=== PATIENT | male | born 1940 | race Caucasian/White ===

== ENCOUNTER 2024-05-06 22:38 | Emergency (ER) | payer MEDICARE, OTHER, SELFPAY ==
[2024-05-06 22:39] VITALS: BP 173/93
[2024-05-06] MEDS: CARAFATE SUSPENSION 1 GM PO (23:42)
[2024-05-06 23:53] VITALS: BP 159/76
[2024-05-06 23:54] LABS: % Basophils 0.2 % (0-2); % Eosinophils 1.4 % (0-6); % Immature Granulocytes 0.3 % (0-0.5); % Monocytes 12.5 % (1.7-9.3); % Neutrophils 63.6 % (42.2-75.2); Absolute Eosinophils 0.1 10^3/uL (0-0.7); Absolute Lymphocytes 1.4 10^3/uL (1.2-3.4); Absolute Monocytes 0.8 10^3/uL (0.1-0.6); Hematocrit 42.9 % (39.0-52.0); Hemoglobin 14.6 g/dL (13.0-18.0); Mean Corpuscular Hgb 29.9 pg (27.0-31.0); Mean Corpuscular Volume 87.9 fL (80.0-94.0); Mean Platelet Volume 9.1 fL (7.4-10.4); Nucleated Red Blood Cells % 0 % (-); Platelet Count 165 10^3/uL (130-400); Red Blood Cell Count 4.88 10^6/uL (4.70-6.10); White Blood Cell Count 6.3 10^3/uL (4.8-10.8)
[2024-05-07] VITALS: BP 138/73
[2024-05-07 00:02] LABS: INR 0.94; PT 12.9 Sec (11.4-14.6)
[2024-05-07 00:03] LABS: APTT 30.3 Sec (23.4-35.0)
[2024-05-07 00:17] LABS: Troponin I < 0.012 ng/ml
[2024-05-07 00:42] LABS: ALT (SGPT) 46 U/L (0-50); AST (SGOT) 77 U/L (17-59); Albumin 4.2 g/dl (3.5-5.0); Alkaline Phosphatase 56 U/L (38-126); Blood Urea Nitrogen 20 mg/dl (9-20); Calcium 8.4 mg/dl (8.4-10.2); Carbon Dioxide 30 mmol/L (22-30); Chloride 98 mmol/L (98-107); Glucose 95 mg/dl (70-99); Lipase 119 U/L (23-300); Sodium 135 mmol/L (135-145); Total Bilirubin 0.7 mg/dl (0.2-1.3); eGFR > 60.00
--- NOTE | 2024-05-07 00:53 | ED.GENMED ---
History of Present Illness
General
Chief Complaint: Abdominal Symptoms
Source: patient
Exam Limitations: none
Time Seen by Provider: 05/06/24 23:25
Nursing documentation reviewed up to this point in time: agreed with
History of Present Illness
History of Present Illness:
Pleasant 83-year-old male presents to the emergency department with 'GERD '. Patient states that he has been battling with GERD for over 50 years. He states that he is triggered by spicy foods including pepperoni and onions. He ate some homemade
deer sausage given to him by a friend and found that it was spicy. He developed symptoms immediately after eating and has been having them for the last 5 days. He states that he has been unable to sleep because every time he lies down the symptoms
are exacerbated. He is not on any current medications. He states that he has been to the doctor multiple times for the same symptoms and has not been started on any other medications. He did go to urgent care and was started on a Z-Riki for upper
respiratory infection. Patient denies chest pain or shortness of breath. He states that his cough is nonproductive.
Past History
Past History
ED Past Medical History: HTN and Hypercholesterolemia
Social History
Tobacco: Non-smoker
Alcohol: None
Drug: None
Review of Systems
Review of Systems
Allergies reviewed?: Yes
All Other Systems: ROS reviewed and negative except as documented in HPI and ROS
Constitutional: Reports no symptoms
EENT: Reports no symptoms
Respiratory: Reports cough
Cardiac: Denies chest pain
ABD/GI: Reports abdominal pain
: Reports no symptoms
Musculoskeletal: Reports no symptoms
Skin: Reports no symptoms
Neurological: Reports no symptoms
Endocrine: Reports no symptoms
Hematologic/Lymphatic: Reports no symptoms
Psychiatric: Reports no symptoms
Phy Exam
General Physical Exam
General Presentation: well appearing and no apparent distress
General Skin: warm and dry
General Habitus: normal
General Mental: alert
General Hydration: appears well hydrated
ENT Exam
ENT Exam: EOMI, pharynx normal, neck supple and normocephalic
Eye Exam
Eye Exam: PERRL, cornea clear and conjunctiva normal
Cardiovascular Exam
Cardiovascular Exam: regular rate/rhythm, no edema, no murmur and normal peripheral pulses
Pulmonary Exam
Pulmonary Exam: lungs clear, no respiratory distress, no rales, no crackles, no rhonchi, no stridor, no wheezing and no cough
Gastrointestinal Exam
Gastrointestinal Exam: normal bowel sounds, non tender, soft, no organomegaly, no pulsatile mass and non distended
Neurological Exam
Neurological Exam: alert, oriented x3, no motor deficits and speech normal
Musculoskeletal Exam
Musculoskeletal Exam: full ROM and no edema
Skin Exam
Skin Exam: normal color, warm/dry, no rash and no petechia
Psychiatric Exam
Psychiatric Exam: normal mood/affect
Course
Orders/Labs/Results
Orders:
Orders
05/06/24 23:24
Sucralfate Suspension [Carafate Suspension] 1 gm PO NOW STA
05/06/24 23:25
Electrocardiogram (*1) Stat
Reason for Study: Abdominal Pain
EKG- Treatment ONCE
05/06/24 23:33
Complete Blood Count/With Diff Urgent
Comprehensive Metabolic Panel Urgent
Lipase Urgent
PTT Urgent
Prothrombin Time Urgent
Troponin I Urgent
05/07/24 00:48
Mag Hydrox/Al Hydrox/Simeth [Maalox] 30 ml Phenobarb/Hyoscy/Atropine/Scop [] 10 ml Viscous Lidocaine 2% [Xylocaine Viscous Cup] 10 ml PO NOW
Pantoprazole [Protonix] 40 mg PO NOW STA
05/07/24 00:49
CR Chest - 2 Views Urgent
Comment:
Reason For Exam: cough
05/07/24 00:54
Mag Hydrox/Al Hydrox/Simeth [Maalox] 30 ml .ROUTE .STK-MED ONE
Phenobarb/Hyoscy/Atropine/Scop [] 10 ml .ROUTE .STK-MED ONE
Viscous Lidocaine 2% [Xylocaine Viscous Cup] 15 ml .ROUTE .STK-MED ONE
05/07/24 01:03
COVID-19 Antigen Urgent
Source: Nasal Swab
Abnormal Lab Results
05/06/24
23:33
Absolute Monos (auto) 0.8 H 10^3/uL
(0.1-0.6)
Monocytes % 12.5 H %
(1.7-9.3)
AST 77 H U/L
(17-59)
05/06/24 23:33
05/06/24 23:33
Vital Signs
Initial and Last Documented VS:
Initial Vital Signs
Temp Pulse Resp BP Pulse Ox
98.1 F 76 16 173/93 98
05/06/24 22:39 05/06/24 22:39 05/06/24 22:39 05/06/24 22:39 05/06/24 22:39
Last Documented Vital Signs
Temp Pulse Resp BP Pulse Ox
98.1 F 80 16 134/76 91
05/06/24 22:39 05/07/24 02:00 05/07/24 02:00 05/07/24 02:00 05/07/24 02:00
*Critical Care Note
Total Time (30-74mins, 75-104mins- exclusive of procedures): Not Applicable
ED Attending Note
-
Portions of this chart may have been created with voice recognition software.� Occasional wrong word or��sound alike� substitutions may have occurred due to the inherent limitations of voice recognition software.
Discharge Plan
Departure
Patient Disposition: Home (Routine Discharge)
Date of Disposition: 05/07/24
Time of Disposition: 02:26
Patient with high blood pressure during this ER visit?: Yes
Condition: Good
Discharge Problem:
Chronic GERD
Instructions: [place] Diet, Acid reflux and GERD in adults, BLOOD PRESSURE
Prescriptions:
New
pantoprazole [Protonix] 40 mg tablet,delayed release (DR/EC)
40 mg PO DAILY Qty: 30 0RF
No Action
lisinopril 5 MG tablet
5 mg PO DAILY
Aspirin Chewable 81 MG
81 mg PO DAILY
simvastatin 10 MG tablet
10 mg PO DAILY
Referrals:
[facility] [Provider Group]
UNKNOWN - PT DOES,NOT KNOW [Family Provider] -
Activity Restrictions/Additional Instructions:
It was a pleasure meeting you and taking part in your care. We hope for your continued healing and wellness.
Please read discharge instructions in their entirety. However, they are for general education and may not describe your exact diagnosis at discharge. Information on your ER visit and medical conditions were discussed with you along with appropriate
follow up information...
If indicated, please take your medications as instructed and indicated on discharge paperwork.
Please schedule a follow up appointment as directed. Call to schedule an appointment
Please return to the emergency department with ANY change in, persisting, or worsening of symptoms. If any of your symptoms do not improve, or persist, or become more severe within 6-12 hours, please return to the emergency department for further
care.
Please return to the emergency department if you develop a headache, neck pain/stiffness, fever greater than 100.4F, chest pain, shortness of breath, persistent nausea, vomiting, slurred speech, difficulty walking, numbness/tingling, weakness, signs
of infection or any other symptoms that are worrisome to you.
If you have any questions or concerns please do not hesitate to call the Hospital at or E-mail me directly at [email or web address]
Interventions
Interventions:
*General Assessment Last Done: 05/06/24 22:39
*ED COVID-19 Vaccine History Last Done: 05/06/24 22:39
Discharge Date and Time
Print Language: BENINESE
[2024-05-07] MEDS: MAALOX 50 PO (01:01)
[2024-05-07] MEDS: PROTONIX 40 MG PO (01:01)
[2024-05-07 01:07] VITALS: BP 181/66
[2024-05-07 01:29] LABS: COVID-19 Antigen Negative (Negative)
[2024-05-07 02:00] VITALS: BP 134/76
[2024-05-07] MEDS: TUMS CHEWABLE TABLET 200 MG PO (03:00)
== END 2024-05-07 03:21 | disposition home or self-care (01) ==
LOC: EMR 22:38
PROVIDERS: EMERGENCY PHYSICIAN Student in an Organized Health Care Education/Training Program
DX: K21.9 Gastro-esophageal reflux disease without esophagitis (principal); I10 Essential (primary) hypertension; E78.00 Pure hypercholesterolemia, unspecified
CPT/HCPCS: 99285; 71046; 80053; 83690; 84484; 85025; 85610; 85730; 87811; 93005